=== PATIENT | male | born 1980 | race Hispanic/Latino ===

== ENCOUNTER 2017-08-02 07:22 | Outpatient (CLI) | payer BC ==
--- NOTE | 2017-08-02 10:03 | MRI ---
MRI OF THE LUMBAR SPINE WITHOUT CONTRAST: Indication: 36-year-old male with low back pain and radiculopathy. Patient has been experiencing jose k pain and leg pain ongoing for one year. Comparison: None. FINDINGS: The visualized retroperitoneum and perivertebral soft tissues appear within normal limits. There is loss of the normal disc signal and height at L4-5 and L5-S1. There is a right paracentral protrusion containing the ventral aspect of the thecal sac without sign ificant sac compression. There is no appreciable neural foraminal narrowing. At L4-5, there is a broad based disc bulge with a superimposed central to left paracentral disc prot rusion. There is a central annular fissure measuring 1.1 cm. There is mild effacement of the ventral thecal sac and mild encroachment on the left lateral recess without definite impingement. Broad bas ed bulge and mild facet hypertrophy does encroach upon the neural foramina without definite impingem ent. This is much greater on the left. At L3-4, there is no appreciable central canal or neural foraminal narrowing. At L2-3, there is no appreciable central canal or neural foraminal narrowing. At L1-2, there is no appreciable central canal or neural foraminal narrowing. At T12-L1, there is no appreciable central canal or neural foraminal narrowing. The conus terminates as L1. IMPRESSION: 1. 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 The disc protrusion is causing some mild encroachment on the left lateral recess without definite i mpingement. There is mild bilateral foraminal narrowing at L4-5, left greater than right. 2. Central to right paracentral disc protrusion at L5-S1. POS: [facility]
--- NOTE | 2017-08-02 10:14 | MRI ---
MRI CERVICAL SPINE NONCONTRAST: History: 36-year-old male with cervical radiculopathy, M54.12. Cervicalgia. Comparison: None. FINDINGS: Vertebral body heights are maintained. Alignment is normal. No Chiari I malformation. Cervical spina l cord has normal size and signal. The central spinal canal and thecal sac are generous in caliber t hroughout all levels. No high grade neural foraminal stenosis at any level. Mild left degenerative f acet changes at C7-T1. No high grade degenerative facet changes at any level. At C5-6 there is a sha llow, broad based disc herniation, which does not cause central spinal canal stenosis (apparent only on sagittal images), but does cause an osseous defect at the posterior midline edge of the C6 upper endplate, technically making this a small Schmorl's node. There is no marrow edema associated with this. Otherwise, there is no significant disc herniation. No nerve root impingement at any level. P erivertebral spaces are normal. In the central portion of the C5 vertebral body, there is a T1 hypointense and T2 and STIR hyperinte nse lesion with irregular margins, measuring approximately 0.9 x 0.9 x 0.8 cm. The bone marrow signa l is normal throughout the rest of the cervical spine. IMPRESSION: 1. No central spinal canal stenosis, significant neural foraminal stenosis, nerve root impingement, or cord impingement, at any level. 2. An approximately 1 cm focal intraosseous lesion in the C5 vertebral body. Exact etiology is uncer tain, but in a young patient, this is favored to be a benign lesion, such as a hemangioma of bone (i ntraosseous venous malformation) with atypical signal characteristics, unless there is a known prima ry malignancy somewhere. This can be further evaluated with a nuclear medicine bone scan with SPECT of the C-spine. POS: [facility]
== END 2017-08-02 07:23 | disposition home or self-care (01) ==
LOC: MRI 07:22
PROVIDERS: ATTEND Neurological Surgery
DX: M47.26 Other spondylosis with radiculopathy, lumbar region (principal); M54.12 Radiculopathy, cervical region; M51.17 Intervertebral disc disorders with radiculopathy, lumbosacral region
CPT/HCPCS: 72141; 72148

== ENCOUNTER 2024-12-13 07:56 | Outpatient (CLI) | payer OTHER | END 2024-12-13 07:57 | disposition home or self-care (01) | LOC: BICRAD 07:56 | PROVIDERS: ATTEND Family Medicine | DX: R07.89 Other chest pain (principal) | CPT/HCPCS: 71046 ==